=== PATIENT | female | born 1975 | race Caucasian/White ===

== ENCOUNTER 2020-10-08 09:28 | Emergency (ER) | payer BC, MEDICAID ==
[~2020-10-08] VITALS: Ht 162.6 cm; Wt 79.5 kg
[~2020-10-08 09:28] MED LIST: IBUP-1984 PO
--- NOTE | 2020-10-08 09:55 | NUR ---
ASSISTED PT TO BATHROOM
[2020-10-08] MEDS ORDERED: normal saline 1000ml 1,000 ML IV ONE (10:15)
[2020-10-08] MEDS ORDERED: diazepam inj 5 MG/ML inj. IV ONE (10:15)
[2020-10-08] MEDS ORDERED: ketorolac tromethamine 15mg/ml inj. IV ONE (10:15)
[2020-10-08] MEDS ORDERED: METH-360 PO (12:45)
[2020-10-08] MEDS ORDERED: NAPR-56 PO (12:45)
[2020-10-08 14:17] VITALS: BP 126/79
== END 2020-10-08 14:20 | disposition home or self-care (01) ==
LOC: ER 09:28
DX: M54.5 Low back pain (principal); F41.9 Anxiety disorder, unspecified; F32.9 Major depressive disorder, single episode, unspecified; Z90.710 Acquired absence of both cervix and uterus; Z79.899 Other long term (current) drug therapy
CPT/HCPCS: 72148; 96361; 96374; 96375; 99284; J1885; J3360; J7030

== ENCOUNTER 2020-10-12 08:44 | Outpatient (CLI) | payer BC, MEDICAID ==
[~2020-10-12 08:44] MED LIST changes: +METH-360 PO; +NAPR-56 PO
== END 2020-10-12 23:59 | disposition home or self-care (01) ==
LOC: 64 CT 08:44
PROVIDERS: ATTEND Anesthesiology Pain Medicine
DX: K52.9 Noninfective gastroenteritis and colitis, unspecified (principal); K76.89 Other specified diseases of liver; M47.816 Spondylosis without myelopathy or radiculopathy, lumbar region; Z68.28 Body mass index [BMI] 28.0-28.9, adult
CPT/HCPCS: 74176

== ENCOUNTER 2021-01-04 21:15 | Emergency (ER) | payer BC, MEDICAID ==
[~2021-01-04] VITALS: Ht 167.6 cm; Wt 80.0 kg
[~2021-01-04 21:15] MED LIST changes: -NAPR-56 PO
[2021-01-04 21:50] LABS: BASOPHILS # (AUTO) 0.1 X10'3 (0-0.2); BASOPHILS % (AUTO) 0.9 % (0-1); EOSINOPHILS # (AUTO) 0.2 X10'3 (0-0.9); EOSINOPHILS % (AUTO) 2.3 % (0-6); HEMATOCRIT 38.3 % (35.0-45.0); HEMOGLOBIN 13.3 g/dl (12.0-16.0); LYMPHOCYTES # (AUTO) 2.3 X10'3 (1.1-4.8); LYMPHOCYTES % (AUTO) 27.4 % (21-51); MEAN CORPUSCULAR HEMOGLOBIN 30.7 PG (27.0-31.0); MEAN CORPUSCULAR HGB CONC 34.7 g/dL (33.0-36.5); MEAN CORPUSCULAR VOLUME 88.5 FL (78-98); MEAN PLATELET VOLUME 8.5 FL (7.4-10.4); MONOCYTES # (AUTO) 0.7 X10'3 (0-0.9); MONOCYTES % (AUTO) 8.2 % (2-12); NEUTROPHILS # (AUTO) 5.1 X10'3 (1.8-7.7); NEUTROPHILS % (AUTO) 61.2 % (42-75); PLATELET COUNT 253 X10'3 (140-440); RED BLOOD COUNT 4.33 X10'6 (4.20-5.60); RED CELL DISTRIBUTION WIDTH 12.9 % (11.5-14.5); WHITE BLOOD COUNT 8.3 X10'3 (4.5-11.0)
[2021-01-04 21:58] LABS: ALANINE AMINOTRANSFERASE 18 U/L (12-78); ALBUMIN/GLOBULIN RATIO 1.1 (1.1-1.5); ALKALINE PHOSPHATASE 92 IU/L (46-116); ANION GAP 10 (8-16); ASPARTATE AMINO TRANSFERASE 10 U/L (10-37); BILIRUBIN,TOTAL 0.3 MG/DL (0.1-1.0); BLOOD UREA NITROGEN 19 MG/DL (7-18); BUN/CREATININE RATIO 18.3 (6.6-38.0); CALCIUM 9.5 MG/DL (8.5-10.1); CHLORIDE 104 MMOL/L (99-107); CREATININE 1.04 MG/DL (0.40-0.90); GLUCOSE 107 MG/DL (70-104); LIPASE 105 U/L (73-393); POTASSIUM 3.9 MMOL/L (3.5-5.1); SODIUM 141 MMOL/L (135-145); TOTAL CARBON DIOXIDE 26.7 MMOL/L (24-32); TOTAL PROTEIN 7.8 G/DL (6.4-8.2); eGFR 57 ML/MIN
--- NOTE | 2021-01-05 00:48 | NUR ---
MARANDA EMMANUEL [phone]
[2021-01-05 04:15] VITALS: BP 129/85
[2021-01-05 04:21] LABS: HCG SERUM QL NEGATIVE
--- NOTE | 2021-01-05 04:29 | NUR ---
pt is polite and cooperative. pt states not as much vaginal bleeding over the past few hrs, but 5 hrs ago she was still bleeding heavily.
== END 2021-01-05 04:51 | disposition home or self-care (01) ==
LOC: ER 21:15
DX: N99.3 Prolapse of vaginal vault after hysterectomy (principal); N93.9 Abnormal uterine and vaginal bleeding, unspecified; F41.9 Anxiety disorder, unspecified; F32.9 Major depressive disorder, single episode, unspecified; Z87.440 Personal history of urinary (tract) infections; Z72.89 Other problems related to lifestyle; Z90.710 Acquired absence of both cervix and uterus; Z88.8 Allergy status to other drugs, medicaments and biological substances; Z79.899 Other long term (current) drug therapy
CPT/HCPCS: 36415; 80053; 83690; 84703; 85025; 99283

== ENCOUNTER 2021-12-29 10:25 | Emergency (ER) | payer BC, MEDICAID ==
[~2021-12-29] VITALS: Ht 167.6 cm; Wt 75.0 kg
[2021-12-29 10:29] VITALS: BP 157/92
--- NOTE | 2021-12-29 11:20 | NUR ---
pt seen leaving the er by staff. informed
[2021-12-29] MEDS ORDERED: LIDOcaine 5% patch TP STA (13:20)
== END 2021-12-29 14:15 | disposition home or self-care (01) ==
LOC: ER 10:26
DX: R07.81 Pleurodynia (principal); F41.9 Anxiety disorder, unspecified; F32.9 Major depressive disorder, single episode, unspecified; Z87.448 Personal history of other diseases of urinary system
CPT/HCPCS: 71101; 99283

== ENCOUNTER 2024-05-19 13:21 | Outpatient (CLI) | payer OTHER | END 2024-05-19 23:59 | disposition home or self-care (01) | LOC: MRI02 13:21 | PROVIDERS: ATTEND Student in an Organized Health Care Education/Training Program | DX: Z53.9 Procedure and treatment not carried out, unspecified reason (principal) ==